=== PATIENT | female | born 1940 | race Caucasian/White ===

== ENCOUNTER 2016-08-19 06:38 | Emergency (ER) | payer MEDICARE ==
[~2016-08-19 06:38] MED LIST: ALLEGRA PO; AMIODARONE HCL100 MG PO; AMITRIPTYLINE H25 MG PO; AMITRYPTYLINE PO; ARAVA10 MG PO; ASPIRIN EC81 M1 PO; AUGMENTIN875 MG PO; BRILINTA90 MG PO; CARVEDILOL3.125 MG PO; COMBIVENT U/D3 M1 INH; CRESTOR PO; DARVOCET-N 1001 TAB PO; DOXYCYCLINE150 MG PO; FLEXERIL PO; FUROSEMIDE40 MG PO; GAVISCON LIQUI355 ML PO; HCTZ PO; HYDRALAZINE HCL25 MG PO; LIPITOR40 MG PO; LISINOPRIL10 MG PO; LOTREL 5/10 MG1 CAP PO; LYRICA PO; LYRICA200 MG PO; MOBIC PO; NORCO1 TAB 10/3 PO; PERCOCET 5-3251 TAB PO; PHENERGAN PO; PREDNISONE PO; PREDNISONE10 MG PO; PROAIR HFA8.5 GM INH; PROAIR RESPICL90 MCG INH; SENOKOT S1 TA1 PO; SINGULAIR PO; STIOLTO RESPIMAT4 GM INH; SYMBICORT 160/4.6 GM INH; ULTRAM PO; ZOFRAN PO
[2016-08-19 07:36] LABS: BASOPHIL% 0.5 % (0-2.5); EOSINOPHIL# 0.1 X10e3 (0-0.7); EOSINOPHIL% 1.4 % (0.0-7.0); HEMATOCRIT 24.9 % (35.0-45.0); HEMOGLOBIN 7.8 gm/dL (12.0-16.0); LYMPHOCYTE# 1.9 X10e3 (1.0-3.5); LYMPHOCYTE% 24.8 % (17.0-45.0); MEAN CELL VOLUME 92.3 FL (83-96); MEAN CORPUSCULAR HEMOGLOBIN 29.1 PG (28-34); MEAN CORPUSCULAR HGB CONC 31.5 g/dL (30-36); MEAN PLATELET VOLUME 8.6 FL (6.5-11.5); MONOCYTE# 0.6 X10e3 (0-1.0); MONOCYTE% 7.7 % (3.0-12.0); NEUTROPHIL% 65.6 % (40-75); PLATELET COUNT 235 X10e3 (140-420); RED BLOOD COUNT 2.69 X10e (3.90-5.30); RED CELL DISTRIBUTION WIDTH 16.5 % (11.0-15.5); WHITE BLOOD COUNT 7.6 X10e3 (4.0-10.5)
[2016-08-19 07:37] LABS: DIFF IND YES
[2016-08-19 07:48] LABS: PARTIAL THROMBOPLASTIN TIME 26.7 SECONDS (23.5-31.3); PROTHROMBIN TIME (PATIENT) 10.1 SECONDS (9.6-11.5)
[2016-08-19 08:00] LABS: ANISOCYTOSIS SL; PLATELET ESTIMATE NORMAL (NORMAL)
== END 2016-08-19 08:21 | disposition home or self-care (01) ==
LOC: CED 06:38
PROVIDERS: Emergency Medicine
DX: K92.1 Melena (principal); D64.9 Anemia, unspecified; J44.9 Chronic obstructive pulmonary disease, unspecified; I11.0 Hypertensive heart disease with heart failure; I12.9 Hypertensive chronic kidney disease with stage 1 through stage 4 chronic kidney disease, or unspecified chronic kidney disease
CPT/HCPCS: 36415; 85025; 85610; 85730; 99283

== ENCOUNTER 2016-08-25 11:00 | Inpatient (IN) | payer MEDICARE ==
--- NOTE | ~2016-08-25 | OR ---
Unit #: [id number] #: [id number] Patient: TD BARNEY [id number] [facility] [address]. [place], [place] [address] [id number] MR#: [id number] NAME: TD BARNEY ROOM: [facility] Date of Procedure: 08/27/2016 Admission Date: 08/25/2016 Surgeon: Bravo Rico M.D. : 1940 Attending Physician: Do Arana M.D. Primary Care Physician: Do Arana M.D. OPERATIVE REPORT PROCEDURE PERFORMED Colonoscopy to cecum with argon plasma coagulation. INDICATIONS FOR PROCEDURE The patient presented with severe anemia, undergoing colonoscopy for evaluation. She has been on aspirin and Brilinta because of recent cardiac stenting and Dr. Cat did not want stop the medications, but did want to proceed with the scope at this time in order to ensure no significant lesions were in the colon. MEDICATIONS Monitored anesthesia. POSTOPERATIVE FINDINGS 1. Colonoscopy completed to cecum. Very extensive diverticulosis seen. 2. Small AVM with active oozing in ascending colon, cauterized using APC. 3. Two polyps were seen, one in ascending and one in transverse, both less than a cm and benign appearing were left alone at this time. Colonoscopy will be carried out later, perhaps after a year with the patient off Brilinta and snare polypectomy will be carried out. DESCRIPTION OF PROCEDURE The patient was explained of the procedure, risks, and benefits along with risks and benefits of anesthesia. She was brought to the endoscopy room. Propofol anesthesia was given. Rectal exam was done, which was normal. Colonoscope was lubricated, passed up the rectum, advanced under direct vision all the way to the cecum. Cecum was identified by ileocecal valve and appendiceal orifice. I then started to pull the scope out. AVM in the ascending colon was cauterized using APC. Two polyps seen were left alone. Extensive diverticulosis noted both in right and left side of the colon. I retroflexed in the rectum. Small hemorrhoids seen. The scope was gently pulled out. She tolerated it well. No major complications were seen. Dictated by... Álvaro Kim/yuriy TD: 08/28/2016 01:20 Unit #: [id number] #: [id number] Patient: TD BARNEY JOB #: [id number] OPERATIVE REPORT Page 1 of 1 X Bravo Rico MD PROCEDURE OPERATIVE NOTE
--- NOTE | ~2016-08-25 | EKG ---
PATIENT: TD BARNEY UNIT #: [id number] Ventricular Rate: 70 BPM Atrial Rate: 70 BPM P-R Interval: 174 ms QRS Duration: 88 ms Q-T Interval: 408 ms QTC Calculation(Bezet): 440 ms P Sterling: 53 degrees Calculated R Sterling: -7 degrees Calculated T Sterling: 22 degrees Diagnosis Line: Normal sinus rhythm Diagnosis Line: Septal infarct , age undetermined Diagnosis Line: Abnormal ECG Diagnosis Line: When compared with ECG of 21-MAY-2016 06:32, Diagnosis Line: Septal infarct is now Present Diagnosis Line: T wave inversion no longer evident in Lateral Diagnosis Line: leads Diagnosis Line: Confirmed by ELBA DANIELS MD ([id number]) on 08/31/2016 Diagnosis Line: 10:19:44 PM INTERPRETING MD: FRANCES YOUNG
--- NOTE | ~2016-08-25 | DS ---
Unit #: [id number] #: [id number] Patient: TD BARNEY [id number] [address] [address] [id number] I MR#: [id number] NAME: TD BARNEY ROOM: 337 Age: 76 Sex: F Admission Date: 08/25/2016 : 1940 Discharge Date: 08/27/2016 Attending Physician: Do Arana M.D. Primary Care Physician: Do Arana M.D. DISCHARGE SUMMARY DISCHARGE DIAGNOSES 1. Anemia with questionable gastrointestinal bleed, status post EGD and colonoscopy. Per Gastroenterology, stable to be discharged on PPI. Status post transfusion. Hemoglobin and hematocrit stable. 2. Peptic ulcer disease. Continue PPI. Outpatient followup with gastroenterology. 3. History of coronary artery disease and congestive heart failure, status post evaluation per Cardiology. Stable to be discharged. Continue medical management. 4. Chronic respiratory failure and pulmonary fibrosis. 5. History of lung cancer. 6. Dyslipidemia. Continue statin. DISCHARGE MEDICATIONS 1. Symbicort one puff inhaler daily. 2. Lyrica 200 mg b.i.d. 3. Stiolto two puffs inhaler daily. 4. Carvedilol 6.25 mg p.o. b.i.d. 5. Furosemide 20 mg daily. 6. Crestor 20 mg daily. 7. Lisinopril 5 mg daily. 8. Arava 20 mg daily. 9. Aspirin 81 mg daily. 10. Brilinta 90 mg b.i.d. 11. Protonix 40 mg p.o. daily. CONSULTANTS 1. Dr. Coelho, cardiology. 2. Dr. Rico, gastroenterology. DIAGNOSTIC STUDIES AND PROCEDURES EGD and colonoscopy per Dr. Rico. Significant for gastric ulcer. HISTORY Please refer to History and Physical done by my colleague for initial presentation on this female. HOSPITAL COURSE Severe anemia with questionable GI bleed, status post evaluation per gastroenterology, as above. Hemoglobin and hematocrit stable. Discharge date hemoglobin is 9.0 and hematocrit 28.3. Continue PPI. Outpatient follow up with Gastroenterology. History of coronary artery disease and CHF, status post evaluation per Unit #: [id number] #: [id number] Patient: TD BARNEY Cardiology, stable. Continue current medical management. Outpatient followup with cardiology. Chronic respiratory failure and pulmonary fibrosis. Continue inhalers. History of lung cancer, now in remission. History of dyslipidemia. Continue statin. DISPOSITION. Going home. FOLLOWUP 1. With primary care physician in 2-3 days. 2. Outpatient followup with gastroenterology and cardiology. Dictated by... Álvaro Murphy/mari TD: 08/27/2016 21:13 JOB #: [id number] DISCHARGE SUMMARY Page 1 of 1 X Sj Goodrich MD X DISCHARGE SUMMARY
--- NOTE | ~2016-08-25 | OR ---
Unit #: [id number] #: [id number] Patient: TD BARNEY [id number] [address] [address] [id number] I MR#: [id number] NAME: TD BARNEY ROOM: [facility] Date of Procedure: 08/26/2016 Admission Date: 08/25/2016 Surgeon: Bravo Rico M.D. : 1940 Attending Physician: Do Arana M.D. Primary Care Physician: Do Arana M.D. OPERATIVE REPORT PROCEDURE PERFORMED Esophagogastroduodenoscopy with hemoclip application. INDICATIONS FOR PROCEDURE The patient is a 76-year-old female presented with severe anemia, on Brilinta and aspirin, undergoing upper endoscopy to look for source of bleeding. The patient could not withhold Brilinta. After careful discussion with performance improvement specialist and primary care, it was decided to do the upper endoscopy on Brilinta. MEDICATIONS Monitored anesthesia. POSTOPERATIVE FINDINGS 1. Esophagitis, mild, along with early esophageal stricture and a small hiatal hernia. 2. An ulcer along the greater curvature along with a few red spots. It was small and hemoclip was applied on the ulcer base. 3. Several gastric erosions, no active bleeding. 4. Normal duodenum and distal duodenum. 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 Follow up with serial H and H. DESCRIPTION OF PROCEDURE The patient was explained of the procedure, risks, and benefits along with the risks and benefits of anesthesia. She was brought to the endoscopy room. Propofol anesthesia was given. Bite block was placed. The scope was passed down the mouth and esophagus, stomach, duodenum, and distal duodenum. Findings as described. Hemoclip applied to the ulcer base. The scope was then carefully withdrawn. She tolerated it well. No major complications were seen. Dictated by... Álvaro Kim/yuriy TD: 08/27/2016 02:32 JOB #: [id number] Unit #: [id number] #: [id number] Patient: TD BARNEY CC: Kush Cat M.D. OPERATIVE REPORT Page 1 of 1 X Bravo Rico MD PROCEDURE OPERATIVE NOTE
--- NOTE | ~2016-08-25 | CO ---
Unit #: [id number] #: [id number] Patient: TD BARNEY [id number] [facility] [address]. [place], [place] [address] [id number] I MR#: [id number] NAME: TD BARNEY ROOM: 337 Age: 76 Sex: F Admission Date: 08/25/2016 : 1940 Attending Physician: Do Arana M.D. Primary Care Physician: Do Arana M.D. Consultation Date: 08/25/2016 CONSULTATION REPORT REASON FOR CONSULTATION Cardiovascular management and antiplatelet regimen. HISTORY OF PRESENT ILLNESS This is a 76-year-old white female previously known to Dr. Carrsaco with a past medical history of coronary artery disease with non ST elevation myocardial infarction April 2016. The patient underwent a cardiac catheterization which revealed an 80% stenosis in the ostial left main. Ejection fraction was low at 25%. She was transferred to [facility] and underwent a high-risk Impella guided percutaneous coronary intervention with kissing balloon stents in the left main extending into the left circumflex and LAD. A 2D echocardiogram was completed on May 10, 2016, which revealed an EF of 20% to 25%. There was moderate aortic regurgitation. Additional past medical history includes pulmonary fibrosis, COPD, and lung cancer status post resection and chemotherapy years ago. The patient has ischemic cardiomyopathy and chronic systolic congestive heart failure. She is known to have hyperlipidemia and reformed tobacco abuse. After the cardiac catheterization, she was re-admitted to [facility] for dehydration and an acute kidney injury. She presented to her primary care provider's office today with complaints of recent bright red rectal bleeding last week. She denies any abdominal pain. There are no reports of nausea or vomiting. The episode of bleeding occurred once but was a large amount. The patient denies any episodes of chest pain. She has been attending cardiac rehab but cannot exercise on the treadmill. She has been exercising on the stationary bicycle. There are no reports of PND, orthopnea, or significant lower extremity edema. She denies any dizziness or syncope. She was sent from her primary care office to the hospital due to concern for GI bleed and anemia. Labs were obtained and revealed a hemoglobin of 7.5 with hematocrit of 23.8. In April 2016, her hemoglobin was 9.8. Hemoglobin ranged from 7.6 to 10.5. Cardiology was consulted for management of antiplatelet therapy. PAST MEDICAL HISTORY 1. Coronary artery disease, non ST elevation myocardial infarction, status post cardiac catheterization in April 2016 with ostial left main 80%. Left ventricular ejection fraction 25%. Status post PCI and drug-eluting stent in the left main extending into the left circumflex and LAD. Impella-guided procedure. 2. A 2D echocardiogram, April 2016, revealed a left ventricular ejection fraction of 20% to 25%, mildly dilated left atrium, mild aortic stenosis, moderate aortic regurgitation, [id number] mitral regurgitation, mild tricuspid and pulmonic regurgitation. Unit #: [id number] #: [id number] Patient: TD BARNEY 3. Hyperlipidemia. 4. Ischemic cardiomyopathy. 5. Chronic systolic congestive heart failure. 6. Pulmonary fibrosis. 7. COPD. 8. History of lung cancer, status post resection and chemotherapy. 9. Nonsustained ventricular tachycardia. 10. History of acute kidney injury and dehydration. 11. Reformed tobacco abuse. PAST SURGICAL HISTORY 1. Cardiac catheterization, PCI and stent, Impella guided, April 2016. 2. Lung resection due to lung CA. HOME MEDICATIONS 1. Brilinta 90 mg p.o. b.i.d. 2. Carvedilol 6.25 mg p.o. b.i.d. 3. Crestor 20 mg p.o. daily. 4. Lisinopril 5 mg p.o. daily. 5. Symbicort 160/4.5 mcg one puff inhalation daily. 6. Aspirin 81 mg p.o. daily. 7. Furosemide 20 mg p.o. daily. 8. Arava 20 mg p.o. daily. 9. Tiotropium two puffs inhalation daily. 10. Lyrica 200 mg p.o. b.i.d. ALLERGIES Sulfa. SOCIAL HISTORY The patient lives in a private residence. She is currently attending cardiac rehab. She is a reformed smoker. There are no reports of alcohol or illicit drug use. FAMILY HISTORY Significant for heart disease. Her father had a myocardial infarction in his 50s. Her mother of old age at 98 years old. REVIEW OF SYSTEMS A 10-point review of systems negative except for details noted above in HPI. PHYSICAL EXAMINATION VITAL SIGNS: Temperature 98.3, pulse 78, blood pressure 124/(1) . GENERAL: This is a 76-year-old white female in no acute distress. SKIN: Pale but warm and dry. NECK: Supple. No jugular vein distention. No hepatojugular reflux. Normal carotid upstrokes. No carotid bruits auscultated. HEART: S1, S2. Regular rate and rhythm. No murmurs, rubs, or gallops. LUNGS: Bilateral breath sounds have good air entry throughout all lung osborne except for some wheezing. Respirations are nonlabored. No rales or rhonchi. ABDOMEN: Soft, nontender, nondistended. Positive bowel sounds auscultated x4 quadrants. No ascites noted. EXTREMITIES: Bilateral lower extremities have trace pretibial pitting edema. DP and PT pulses 2+. Capillary refill less than 3 seconds. Unit #: [id number] #: [id number] Patient: TD BARNEY DIAGNOSTIC STUDIES LABORATORY: White blood cell count 7.9, hemoglobin 7.5, hematocrit 23.8, platelets 220,000. Sodium 139, potassium 4.2, chloride 110, CO2 of 22, BUN 21, creatinine 1, glucose 120. Total protein 6.8, albumin 3.2, AST 13, ALT 13, alkaline phosphatase 66. Iron 31. INR 1. CARDIOVASCULAR: EKG reveals sinus rhythm with a ventricular rate of 70 beats per minute. Nonspecific ST-T wave changes noted. Poor R waves in the anterolateral leads. QTc 440 ms. IMPRESSION 1. Anemia with gastrointestinal bleeding. 2. Coronary artery disease, status post percutaneous coronary intervention and stents in the left main extending into the left anterior descending coronary artery and left circumflex. 3. Ischemic cardiomyopathy with left ventricular ejection fraction of approximately 30%. 4. Hyperlipidemia. 5. Chronic systolic congestive heart failure, compensated. 6. Chronic obstructive pulmonary disease. 7. Pulmonary fibrosis. 8. History of lung cancer, status post resection and chemotherapy. 9. Former tobacco abuse. PLAN 1. The patient presented to the hospital from her primary care office due to gastrointestinal bleed and anemia. 2. She has been admitted for further observation and gastroenterology has been consulted. 3. Cardiology was consulted due to antiplatelet regimen. 4. The patient can proceed staged GI scope with EGD on August 26 and colonoscopy on August 27, 2016. 5. If she has any polyps to be removed, this can be done electively after holding Brilinta four or five days. 6. There is no evidence of congestive heart failure or reports of chest pain. 7. The patient will be continued on dual antiplatelet therapy for diagnostic scopes. She is also on a beta ben, SABINE inhibitor, statin, and diuretic. Dictated by... Carmelina Soriano APRN for Álvaro Mcallister TD: 08/26/2016 10:55 JOB #: [id number] Unit #: [id number] #: [id number] Patient: TD BARNEY CONSULTATION REPORT Page 1 of 1 X X CONSULTATION REPORT
[2016-08-25] MEDS ORDERED: CRESTOR PO (14:47)
[2016-08-25] MEDS ORDERED: LISINOPRIL5 MG PO (14:49)
[2016-08-25] MEDS ORDERED: SYMBICORT INH (14:52)
[2016-08-25 15:13] LABS: HEMATOCRIT 23.8 % (35.0-45.0); HEMOGLOBIN 7.5 gm/dL (12.0-16.0); MEAN CELL VOLUME 93.2 FL (83-96); MEAN CORPUSCULAR HEMOGLOBIN 29.3 PG (28-34); MEAN CORPUSCULAR HGB CONC 31.4 g/dL (30-36); MEAN PLATELET VOLUME 8.6 FL (6.5-11.5); RED BLOOD COUNT 2.55 X10e (3.90-5.30); RED CELL DISTRIBUTION WIDTH 17.2 % (11.0-15.5); RETICULOCYTE 3.8 % (0.5-2.8); WHITE BLOOD COUNT 7.9 X10e3 (4.0-10.5)
[2016-08-25 15:23] LABS: ALBUMIN SERUM 3.2 g/dL (3.5-5.0); BILIRUBIN,TOTAL 0.4 mg/dL (0.2-2.0); BUN/CREATININE RATIO 17.5; CALCIUM SERUM 8.3 mg/dL (8.4-10.2); CREATININE SERUM 1.2 mg/dL (0.6-1.4); GLOM FILT RATE Estimated 44.2 mL/min (>60); POTASSIUM 4.2 mmol/L (3.5-5.1); PROTEIN TOTAL SERUM 6.8 g/dL (6.0-8.3)
[2016-08-25 18:30] LABS: FOLATE (FOLIC ACID) 9.4 ng/mL (>5.8)
[2016-08-26 06:36] LABS: HEMATOCRIT 22.9 % (35.0-45.0); HEMOGLOBIN 7.1 gm/dL (12.0-16.0); MEAN CORPUSCULAR HEMOGLOBIN 28.8 PG (28-34); MEAN CORPUSCULAR HGB CONC 30.9 g/dL (30-36); MEAN PLATELET VOLUME 8.7 FL (6.5-11.5); RED BLOOD COUNT 2.46 X10e (3.90-5.30); RED CELL DISTRIBUTION WIDTH 16.8 % (11.0-15.5)
[2016-08-26 07:04] LABS: BUN/CREATININE RATIO 16.66; CALCIUM SERUM 8.5 mg/dL (8.4-10.2); CREATININE SERUM 0.9 mg/dL (0.6-1.4); GLOM FILT RATE Estimated 62.6 mL/min (>60); POTASSIUM 3.3 mmol/L (3.5-5.1)
[2016-08-26 07:06] LABS: THYROID STIMULATING HORMONE 1.05 uIU/ml (0.34-5.60)
[2016-08-26 07:15] LABS: FREE THYROXIN (T4) 1.1 ng/dL (0.58-1.64)
[2016-08-27 07:05] LABS: HEMATOCRIT 28.3 % (35.0-45.0); MEAN CELL VOLUME 90.6 FL (83-96); MEAN CORPUSCULAR HEMOGLOBIN 28.9 PG (28-34); MEAN CORPUSCULAR HGB CONC 31.9 g/dL (30-36); MEAN PLATELET VOLUME 8.5 FL (6.5-11.5); RED BLOOD COUNT 3.13 X10e (3.90-5.30); RED CELL DISTRIBUTION WIDTH 16.6 % (11.0-15.5); WHITE BLOOD COUNT 7.1 X10e3 (4.0-10.5)
[2016-08-27 08:02] LABS: ALBUMIN SERUM 2.9 g/dL (3.5-5.0); BUN/CREATININE RATIO 14.16; CALCIUM SERUM 8.4 mg/dL (8.4-10.2); CREATININE SERUM 1.2 mg/dL (0.6-1.4); GLOM FILT RATE Estimated 44.2 mL/min (>60); POTASSIUM 3.6 mmol/L (3.5-5.1); PROTEIN TOTAL SERUM 5.6 g/dL (6.0-8.3)
[2016-08-27] MEDS ORDERED: PROTONIX PO (17:46)
== END 2016-08-27 18:25 | disposition home or self-care (01) | DRG 378 ==
LOC: C3A PCU 11:00
PROVIDERS: Internal Medicine; Physician Assistant Medical
PROC: 30233N1 Transfusion of Nonautologous Red Blood Cells into Peripheral Vein, Percutaneous Approach (ICD-10-PCS; 2016-08-26)
PROC: 0W3P8ZZ Control Bleeding in Gastrointestinal Tract, Via Natural or Artificial Opening Endoscopic (ICD-10-PCS; 2016-08-26 11:40)
PROC: 0DBL8ZX Excision of Transverse Colon, Via Natural or Artificial Opening Endoscopic, Diagnostic (ICD-10-PCS; 2016-08-27)
PROC: 0D5K8ZZ Destruction of Ascending Colon, Via Natural or Artificial Opening Endoscopic (ICD-10-PCS; 2016-08-27)
PROC: 0DBK8ZX Excision of Ascending Colon, Via Natural or Artificial Opening Endoscopic, Diagnostic (ICD-10-PCS; principal; 2016-08-27 09:30)
DX: K25.4 Chronic or unspecified gastric ulcer with hemorrhage (principal); I50.22 Chronic systolic (congestive) heart failure; I47.2 Ventricular tachycardia; J96.10 Chronic respiratory failure, unspecified whether with hypoxia or hypercapnia; K55.21 Angiodysplasia of colon with hemorrhage; J84.10 Pulmonary fibrosis, unspecified; I11.0 Hypertensive heart disease with heart failure; K22.2 Esophageal obstruction; D62 Acute posthemorrhagic anemia; J44.9 Chronic obstructive pulmonary disease, unspecified; I25.2 Old myocardial infarction; I08.8 Other rheumatic multiple valve diseases; E78.5 Hyperlipidemia, unspecified; I25.5 Ischemic cardiomyopathy; Z85.118 Personal history of other malignant neoplasm of bronchus and lung; Z87.891 Personal history of nicotine dependence; Z88.2 Allergy status to sulfonamides; Z79.82 Long term (current) use of aspirin; K57.30 Diverticulosis of large intestine without perforation or abscess without bleeding; D12.2 Benign neoplasm of ascending colon; D12.3 Benign neoplasm of transverse colon; K20.9 Esophagitis, unspecified; K44.9 Diaphragmatic hernia without obstruction or gangrene; I25.119 Atherosclerotic heart disease of native coronary artery with unspecified angina pectoris; E87.6 Hypokalemia
CPT/HCPCS: 80048; 80053; 82607; 82728; 82746; 83540; 84439; 84443; 84466; 85027; 85044; 86850; 86900; 86901; 86923; 93005; 94640; 94664; 94760; C9113; P9016

== ENCOUNTER → 2016-10-07 | Outpatient (CLI) | payer MEDICARE ==
[~2016-10-07] MED LIST changes: +LISINOPRIL5 MG PO; +PROTONIX PO; +SYMBICORT INH
--- NOTE | ~2016-10-07 | CT57 ---
[facility] A Service of [facility] RADIOLOGY TEXT RESULTS PATIENT: TD BARNEY LOCATION: [facility]AT : 41 UNIT #: [id number] AGE: [address]: Saroj Curiel MD SEX: F ORDER DR: [id number] [place] [address]. [place], [place] [address] [id number] MR#: [id number] Acc #: [id number] NAME: DT BARNEY : 1940 SEX: F STUDY DATE/TIME: 10/07/2016 9:43 UNIT: [facility] ROOM: STUDY DESCRIPTION: CT Chest Wo Cont Attending Physician: Jennifer Curiel M.D. Referring Physician: Jennifer Curiel M.D. Ordering Physician: Jennifer Curiel M.D. Primary Care Physician: Do Arana M.D. MEDICAL IMAGING REPORT This report is preliminary unless electronic signature is present EXAM CT chest without contrast patient. INDICATIONS Pulmonary fibrosis, shortness of breath for 1-1/2 years. COMPARISON Comparison is made to a prior study from August 05, 2015. TECHNIQUE Axial CT images were obtained from thoracic inlet through the dome of the diaphragm. No intravenous contrast material was administered. This CT exam was performed with one or more of the following radiation dose reduction techniques: automatic exposure control, adjustment of mA and/or kV according to patient size, and iterative reconstruction. FINDINGS This patient has background emphysematous changes. There is also chronic volume loss, as well as extensive interlobular septal thickening with areas of extensive honeycombing seen throughout both lungs; similar findings have been present on exams dating back to July 2012 and really do not appear significantly changed. The patient does have an area of consolidation within the right middle lobe, measuring about 1.1 cm. This could reflect a benign finding. The patient does have a prior history of lung cancer and I would suggest short-term CT followup in 3-6 months to document continuing stability or resolution. Mediastinal lymph nodes do not appear pathologically enlarged. There are coronary artery calcifications. There is a trace pericardial effusion. Images throughout the upper abdomen demonstrate a 2.4 x 2.4 cm lipid-rich adenoma in the left adrenal gland. Nonobstructing stones are seen within both kidneys. Patient is suspected to have some gallstones. There is colonic diverticulosis without any evidence of diverticulitis. [facility] A Service of [facility] RADIOLOGY TEXT RESULTS PATIENT: TD BARNEY LOCATION: [facility] : 41 UNIT #: [id number] AGE: [address]: Saroj Curiel MD SEX: F ORDER DR: Review of bone windows demonstrates some degenerative change. No aggressive osseous abnormalities are seen. IMPRESSION 1. Stable appearance to the patient's bilateral fibrotic changes when compared to exams dating back to 2012. There really has been no significant progression in appearance when compared to that exam. Patient does have a 1.1-cm nodule within the right middle lobe intimately associated with an area of scarring. This probably reflects some additional scarring, but given background emphysematous changes and history of lung cancer, I would suggest short-term CT followup in 3-6 months. 2. A lipid-rich left adrenal adenoma. 3. Suspected cholelithiasis. Patient is also noted to have multiple nonobstructing renal stones. 4. Please see the body of the report for any other additional incidental findings. Dictated by... Eve King M.D. THIS IS AN ELECTRONICALLY VERIFIED REPORT Eve King M.D. at 10/08/2016 10:07 AM STIVEN/amna TD: 10/07/2016 14:49 JOB #: [id number] MEDICAL IMAGING REPORT Page 1 of 1 COPY
== END | disposition home or self-care (01) ==
LOC: CCAT 09:22
DX: J84.10 Pulmonary fibrosis, unspecified (principal); J44.9 Chronic obstructive pulmonary disease, unspecified; R91.1 Solitary pulmonary nodule; J98.4 Other disorders of lung; D35.02 Benign neoplasm of left adrenal gland; N20.0 Calculus of kidney
CPT/HCPCS: 71250; 94060; 94726; 94729

== ENCOUNTER 2016-12-17 18:06 | Emergency (ER) | payer OTHER ==
[~2016-12-17] VITALS: Ht 149.9 cm; Wt 62.6 kg
== END 2016-12-17 19:06 | disposition home or self-care (01) ==
LOC: CED 18:06
DX: M54.42 Lumbago with sciatica, left side (principal); M19.90 Unspecified osteoarthritis, unspecified site; Z85.118 Personal history of other malignant neoplasm of bronchus and lung; Z90.710 Acquired absence of both cervix and uterus; Z95.818 Presence of other cardiac implants and grafts; Z79.82 Long term (current) use of aspirin; Z79.899 Other long term (current) drug therapy; Z88.2 Allergy status to sulfonamides
CPT/HCPCS: 99283